=== PATIENT | male | born 1985 | race Caucasian/White ===

== ENCOUNTER 2017-07-12 07:55 | Day surgery (SDC) | payer BC ==
[~2017-07-12 07:55] MED LIST: Lactated Ringers 1,000 ML IV SCH; Sodium Chloride 0.9% 10 ML Syringe FLUSH PRN
[2017-07-12] MEDS ORDERED: fentaNYL 100 MCG/2 ML SDV ONE ×2 (08:36→08:40)
[2017-07-12] MEDS ORDERED: Midazolam 1 MG/ML 2 ML SDV ONE ×2 (08:37→08:40)
[2017-07-12] MEDS ORDERED: Propofol 200 MG/20 ML SDV ONE ×2 (08:38→08:40)
[2017-07-12] MEDS ORDERED: Lidocaine 2% 5 ML SDV ONE (08:40)
--- NOTE | 2017-07-12 09:28 | PCM.HP ---
H&P History of Present Illness - General Date of Service: 07/12/17 Admit Problem/Dx: Admission Diagnosis/Problem Admission Diagnosis/Problem Esophagogastroduodenoscopy Source of Information: Patient, Old Records History Limitations: Reports: No Limitations - History of Present Illness Initial Comments - Free Text/Narative: Several month history of epigastric pain and GERD symptoms. Had negative GB US - Related Data Allergies/Adverse Reactions: Allergies Allergy/AdvReac Type Severity Reaction Status Date / Time minocycline Allergy elevated Verified 07/12/17 08:24 liver enzymes Home Medications: Home Meds Multivitamin [Daily Yoko] 1 tab PO DAILY 07/11/17 [History] Omeprazole 20 mg PO DAILY 07/11/17 [History] Past Medical History HEENT History: Reports: Impaired Vision Other HEENT History: wears glasses Cardiovascular History: Reports: None Respiratory History: Reports: None Gastrointestinal History: Reports: Other (See Below) Other Gastrointestinal History: Chronic epigastric pain Genitourinary History: Reports: None Musculoskeletal History: Reports: Back Pain, Chronic, Fracture Neurological History: Reports: None Psychiatric History: Reports: None Endocrine/Metabolic History: Reports: None Hematologic History: Reports: None Immunologic History: Reports: None Oncologic (Cancer) History: Reports: None Dermatologic History: Reports: None - Past Surgical History HEENT Surgical History: Reports: Oral Surgery Other HEENT Surgeries/Procedures: wisdom teeth removal 2006 Social & Family History - Tobacco Use Smoking Status *Q: Never Smoker - Caffeine Use Caffeine Use: Reports: Coffee - Recreational Drug Use Recreational Drug Use: No H&P Review of Systems - Review of Systems: Review Of Systems: ROS reveals no pertinent complaints other than HPI. Pulmonary: Reports: No Symptoms Cardiovascular: Reports: No Symptoms Exam - Exam Exam: See Below - Vital Signs Vital Signs: Last Vital Signs Temp 98.8 F 07/12/17 08:33 Pulse 66 07/12/17 08:33 Resp 20 07/12/17 08:33 BP 113/71 07/12/17 08:33 Pulse Ox 100 07/12/17 08:33 Weight: 68.039 kg - Exam General: Alert, Oriented Lungs: Clear to Auscultation, Normal Respiratory Effort Cardiovascular: Regular Rate, Regular Rhythm GI/Abdominal Exam: Soft, Non-Tender *Q Meaningful Use (ADM) - VTE *Q VTE Criteria *Q: - Stroke *Q Stroke Criteria *Q: - AMI *Q AMI Criteria *Q: Problem List Initiated/Reviewed/Updated: Yes Orders Last 24hrs: Active Orders 24 hr Category Date Time Status Patient Status [ADT] Routine ADT 07/12/17 07:00 Active Peripheral IV Care [RC] . DIRECTED Care 07/12/17 07:00 Active Verify Patient Consent Obtain [RC] ASDIRECTED Care 07/12/17 07:00 Active Nothing Per Oral Diet [DIET] Diet 07/12/17 Breakfast Active Lactated Ringers [Ringers, Lactated] 1,000 ml Med 07/12/17 07:00 Active IV ASDIRECTED Sodium Chloride 0.9% [Saline Flush] Med 07/12/17 07:00 Active 10 ml FLUSH ASDIRECTED PRN Peripheral IV Insertion Adult [OM.PC] Routine Oth 07/12/17 07:00 Ordered Medication Orders Lactated Ringer's (Ringers, Lactated) 1,000 mls @ 125 mls/hr IV ASDIRECTED IAM Last Admin: 07/12/17 08:41 Dose: 125 mls/hr Sodium Chloride (Saline Flush) 10 ml FLUSH ASDIRECTED PRN PRN Reason: Keep Vein Open Assessment/Plan Comment:: GERD OK to proceed with EGD; risks and complications reviewed, consent obtained
--- NOTE | 2017-07-12 09:30 | PCM.OPNOTE ---
- General Post-Op/Procedure Note Date of Surgery/Procedure: 07/12/17 Operative Procedure(s): EGD with Bx Findings: Normal except weak LES Primary Surgeon: Demetrius Salomon Anesthesia Provider: Laisha Ruth Pathology: Esophagus EBL in mLs: 0 Complications: None Condition: Good
[2017-07-12 10:01] VITALS: BP 113/63
--- NOTE | 2017-07-12 15:15 | OR ---
Date of Procedure: 07/12/2017 PREOPERATIVE DIAGNOSES: Gastroesophageal reflux disease and epigastric pain. POSTOPERATIVE DIAGNOSES: Gastroesophageal reflux disease and epigastric pain. PROCEDURE: Esophagogastroduodenoscopy with biopsy. ANESTHESIA: IV sedation. PROCEDURE IN DETAIL: Patient was brought to the procedure room, where he was placed on his left side after IV sedation was administered and the oral bite block placed. Upper endoscope was advanced into the esophagus under direct vision without difficulty. Vocal cords were viewed and were normal. The scope was advanced to the third portion of the duodenum. Duodenum and pylorus are normal. Antrum and body of the stomach were normal. Retroflexion reveals a normal appearing fundus. There was a moderate amount of bile in the stomach. Upon retroflexion, the lower esophageal sphincter is weak and I can visualize into the mid esophagus. The squamocolumnar junction appears normal. I did not see any evidence of esophagitis. I did take random biopsies from the mid and distal esophagus to rule out eosinophilic esophagitis. Air was removed from the stomach and the scope withdrawn. The patient tolerated the procedure well. Returned to recovery in stable condition. The patient's symptoms have been refractory to medication, and I do not see any strong evidence for reflux esophagitis. If symptoms continue, further evaluation of the gallbladder with HIDA scan or ultrasound with Kinevac injection should be considered. PATRICIA NIÑO MD /[id number]
== END 2017-07-12 10:25 | disposition home or self-care (01) ==
LOC: LL.SDS 07:55
PROVIDERS: ATTEND Surgery
DX: K21.9 Gastro-esophageal reflux disease without esophagitis (principal); R10.13 Epigastric pain; Z98.818 Other dental procedure status; Z79.899 Other long term (current) drug therapy
CPT/HCPCS: 43239; J2250; J2704; J3010; J7120

== ENCOUNTER 2019-04-03 09:52 | Day surgery (SDC) | payer BC ==
[~2019-04-03 09:52] MED LIST changes: -Lactated Ringers 1,000 ML IV SCH; +Midazolam 1 MG/ML 2 ML SDV ONE; +Propofol 200 MG/20 ML SDV ONE; -Sodium Chloride 0.9% 10 ML Syringe FLUSH PRN
[2019-04-03] MEDS ORDERED: Sodium Chloride 0.9% 10 ML Syringe FLUSH PRN (10:00)
[2019-04-03] MEDS: Lactated Ringers 1,000 ML IV SCH (10:41)
[2019-04-03] MEDS ORDERED: Midazolam 1 MG/ML 2 ML SDV ONE (11:10)
[2019-04-03] MEDS ORDERED: Lidocaine 2% 5 ML SDV ONE (11:10)
[2019-04-03] MEDS ORDERED: Propofol 200 MG/20 ML SDV ONE (11:10)
--- NOTE | 2019-04-03 11:27 | PCM.HP ---
H&P History of Present Illness - General Date of Service: 04/03/19 Admit Problem/Dx: Admission Diagnosis/Problem Admission Diagnosis/Problem Epigastric pain Source of Information: Patient, Old Records History Limitations: Reports: No Limitations - History of Present Illness Initial Comments - Free Text/Narative: Here for EGD for further evaluation of GERD - Related Data Allergies/Adverse Reactions: Allergies Allergy/AdvReac Type Severity Reaction Status Date / Time minocycline Allergy elevated Verified 04/03/19 10:42 liver enzymes Home Medications: Home Meds Omeprazole 40 mg PO DAILY 07/11/17 [History] Zolpidem [Ambien] 5 mg PO BEDTIME PRN 04/03/19 [History] Past Medical History HEENT History: Reports: Impaired Vision Other HEENT History: wears glasses; astigmatism Cardiovascular History: Reports: None Respiratory History: Reports: None Gastrointestinal History: Reports: GERD, Other (See Below) Other Gastrointestinal History: Chronic epigastric pain Genitourinary History: Reports: None Musculoskeletal History: Reports: Back Pain, Chronic, Fracture Neurological History: Reports: None Psychiatric History: Reports: None Endocrine/Metabolic History: Reports: None Hematologic History: Reports: None Immunologic History: Reports: None Oncologic (Cancer) History: Reports: None Dermatologic History: Reports: None - Past Surgical History HEENT Surgical History: Reports: Oral Surgery Other HEENT Surgeries/Procedures: wisdom teeth removal 2005 Social & Family History - Tobacco Use Smoking Status *Q: Never Smoker - Caffeine Use Caffeine Use: Reports: Coffee - Recreational Drug Use Recreational Drug Use: No H&P Review of Systems - Review of Systems: Review Of Systems: ROS reveals no pertinent complaints other than HPI. Exam - Exam Exam: See Below - Vital Signs Vital Signs: Last Vital Signs Temp 98.1 F 04/03/19 10:44 Pulse 79 04/03/19 10:44 Resp 20 04/03/19 10:44 BP 137/67 04/03/19 10:44 Pulse Ox 100 04/03/19 10:44 Weight: 68.039 kg - Exam General: Alert, Oriented Lungs: Clear to Auscultation, Normal Respiratory Effort Cardiovascular: Regular Rate, Regular Rhythm GI/Abdominal Exam: Soft, Non-Tender Problem List Initiated/Reviewed/Updated: Yes Orders Last 24hrs: Active Orders 24 hr Category Date Time Status Patient Status [ADT] Routine ADT 04/03/19 10:00 Active Peripheral IV Care [RC] . DIRECTED Care 04/03/19 10:00 Active Verify Patient Consent Obtain [RC] ASDIRECTED Care 04/03/19 10:00 Active Lactated Ringers [Ringers, Lactated] 1,000 ml Med 04/03/19 10:00 Active IV ASDIRECTED Sodium Chloride 0.9% [Saline Flush] Med 04/03/19 10:00 Active 10 ml FLUSH ASDIRECTED PRN Peripheral IV Insertion Adult [OM.PC] Routine Oth 04/03/19 10:00 Ordered Medication Orders Lactated Ringer's (Ringers, Lactated) 1,000 mls @ 125 mls/hr IV ASDIRECTED IAM Last Admin: 04/03/19 10:41 Dose: 125 mls/hr Sodium Chloride (Saline Flush) 10 ml FLUSH ASDIRECTED PRN PRN Reason: Keep Vein Open Assessment/Plan Comment:: GERD OK to proceed with EGD
--- NOTE | 2019-04-03 11:30 | PCM.OPNOTE ---
- General Post-Op/Procedure Note Date of Surgery/Procedure: 04/03/19 Operative Procedure(s): EGD with Bx Findings: Loose LES Pre Op Diagnosis: GERD Post-Op Diagnosis: Same Anesthesia Technique: MAC Primary Surgeon: Demetrius Salomon Anesthesia Provider: Laisha Ruth EBRaya in mLs: 0 Complications: None Condition: Good
[2019-04-03 14:10] VITALS: BP 106/69
--- NOTE | 2019-04-04 08:42 | OR ---
Date of Procedure: 04/03/2019 PREOPERATIVE DIAGNOSIS: Gastroesophageal reflux disease. POSTOPERATIVE DIAGNOSIS: Gastroesophageal reflux disease. PROCEDURE: Esophagogastroduodenoscopy with biopsy. ANESTHESIA: IV sedation. PROCEDURE IN DETAIL: The patient was brought to procedure room, where he was placed on his left side and IV sedation administered. Oral bite-block was placed and the upper endoscope advanced into the esophagus under direct vision without difficulty. The scope was advanced to the third portion of the duodenum. Duodenum and pylorus are normal. Antrum and body of the stomach are normal. Retroflexion reveals a loose lower esophageal sphincter and I can visualize for approximately 10 cm into the distal esophagus. Squamocolumnar junction appears normal. There were no strictures, ulcers, or erosions. The esophageal mucosal surfaces appear normal. I did take biopsies from the antrum and distal esophagus because of the symptoms. Air was removed and the scope was withdrawn. The patient tolerated the procedure well and returned to recovery in stable condition. The patient's symptoms are seemed to be refractory to an acid medications. This could be on the basis of alkaline reflux gastritis from bile. An upper GI barium study would help confirm whether or not he is having reflux problems. He also does have some intermittent abdominal and chronic back pain. Gallbladder could not be ruled out. Ultrasound has been negative in the past, so I would recommend proceeding with HIDA scan if symptoms persist. PATRICIA NIÑO MD /[id number]
== END 2019-04-03 13:35 | disposition home or self-care (01) ==
LOC: LL.SDS 09:52
PROVIDERS: ATTEND Surgery
DX: K29.50 Unspecified chronic gastritis without bleeding (principal); K21.9 Gastro-esophageal reflux disease without esophagitis; Z88.1 Allergy status to other antibiotic agents; Z79.899 Other long term (current) drug therapy
CPT/HCPCS: 43239; J2001; J2250; J2704; J7120